=== PATIENT | female | born 2000 ===

== ENCOUNTER 2020-07-19 23:33 | Emergency (ER) | payer SELFPAY ==
[~2020-07-19] VITALS: Ht 157.5 cm; Wt 73.8 kg
[2020-07-20] MEDS ORDERED: ONDANSETRON ODT 4 MG PO ONE (00:30)
--- NOTE | 2020-07-20 00:30 | NUR ---
PATIENT RESTING IN BED IN NAD. CALL [facility] IN REACH. RETURNED FROM CT. SAFETY MAINTAINED
[2020-07-20] MEDS ORDERED: ONDANSETRON ODT 4 MG ONE (00:35)
--- NOTE | 2020-07-20 01:20 | NUR ---
DISCHARGE INSTRUCTIONS REVIEWED WITH PATIENT. NO FURTHER QUESTIONS. PATIENT STATES SHE HAS SOMEONE WHOM SHE LIVES WITH THAT CAN CHECK ON HERE FOR SLEEP MONITORING. PRESCRIPTION HANDED DIRECTLY TO PATIENT. STEADY GAIT TO RUI. ALL PERSONAL BELONGINGS WITH PATIENT ON DC. NO IV PLACED DURING THIS ER VISIT Addendum: 07/20/20 at 0129 by ADOUGHTY DENIES NAUSEA AT TIME OF DC
[2020-07-20 01:29] VITALS: BP 99/62
== END 2020-07-20 01:31 | disposition home or self-care (01) ==
LOC: ED 07-20 01:00
DX: S06.0X0A Concussion without loss of consciousness, initial encounter (principal); R11.2 Nausea with vomiting, unspecified; R42 Dizziness and giddiness; W01.0XXA Fall on same level from slipping, tripping and stumbling without subsequent striking against object, initial encounter; Y93.89 Activity, other specified; Y92.828 Other wilderness area as the place of occurrence of the external cause; Y99.8 Other external cause status
CPT/HCPCS: 70450; 99284; Q0162